=== PATIENT | female | born 1985 | race Caucasian/White ===

== ENCOUNTER 2017-07-18 14:58 | Outpatient (CLI) | payer MEDICAID ==
--- NOTE | 2017-07-18 15:37 | Non Stress Test Report ---
Non Stress Test Datetime Report Generated by CPN: 07/18/2017 15:37 DEMOGRAPHIC EGA NST: 40.3 INDICATION Indication for Study: Ordered by Provider MONITORING Monitor Explained: Monitor Explained; Test Explained; Patient Verbalized Understanding Time on Monitor: 07/18/2017 15:07 Time off Monitor: 07/18/2017 15:27 NST Duration: 20 NST INTERVENTIONS NST Interventions: None Physician Notified NST: Dr Garcia BABY A: [id number] BABY A Movement : Present Contraction Frequency : 0 FHR Baseline : 130 Accelerations : 15X15 Decelerations : None Variability : Moderate 6-25bpm NST Review: Meets Criteria for Reactive NST NST Review and Verified By : Jessica Ch RN NSLouisa Results: Reactive NST REPORT Report Trigger: Send Report
== END 2017-07-18 15:30 | disposition home or self-care (01) ==
LOC: LC 14:58
PROVIDERS: ATTEND Obstetrics & Gynecology Gynecology
PROC: 4A1HXCZ Monitoring of Products of Conception, Cardiac Rate, External Approach (ICD-10-PCS; principal; 2017-07-18)
DX: Z34.93 Encounter for supervision of normal pregnancy, unspecified, third trimester (principal)
CPT/HCPCS: 59025

== ENCOUNTER 2017-07-22 06:14 | Inpatient (IN) | payer MEDICAID ==
[2017-07-22] MEDS ORDERED: RINGERS SOLUTION,LACTATED 300 ML IV ONE (06:32)
[2017-07-22] MEDS ORDERED: OXYTOCIN/NORMAL SALINE 20 UNIT/1,000 ML RTUINJ IV PRN ×2 (06:32→21:19)
[2017-07-22] MEDS ORDERED: PENICILLIN G POTASSIUM 5,000,000 UNIT in DEXTROSE 5%-WATER 100 ML IV ONE (06:35)
[2017-07-22 06:37] LABS: APPEARANCE,URINE CLOUDY; BILIRUBIN,URINE NEGATIVE (NEGATIVE); COLOR,URINE YELLOW; GLUCOSE, URINE NEGATIVE (NEGATIVE); KETONES,URINE NEGATIVE (NEGATIVE); LEUKOCYTE ESTERASE,URINE LARGE (NEGATIVE); NITRITE,URINE NEGATIVE (NEGATIVE); PROTEIN,URINE NEGATIVE (NEGATIVE); URINE SPECIFIC GRAVITY 1.006; UROBILINOGEN,URINE NEGATIVE mg/dL (<2.0)
[2017-07-22] MEDS: RINGERS SOLUTION,LACTATED 1,000 ML IV PRN ×2 (06:54→16:53)
[2017-07-22 06:59] LABS: URINE AMPHETAMINES SCREEN NEGATIVE; URINE BARBITURATES SCREEN NEGATIVE; URINE BENZODIAZEPINES SCREEN NEGATIVE; URINE COCAINE SCREEN NEGATIVE; URINE MARIJUANA (THC) SCREEN NEGATIVE; URINE METHADONE SCREEN NEGATIVE; URINE PHENCYCLIDINE SCREEN NEGATIVE
[2017-07-22 07:01] LABS: ABSOLUTE EOSINOPHILS # (AUTO) 0.2 10^3/uL (0.0-0.6); ABSOLUTE LYMPHOCYTES (AUTO) 1.7 10^3/uL (0.5-4.7); ABSOLUTE MONOCYTES (AUTO) 0.7 10^3/uL (0.1-1.4); ABSOLUTE NEUT (AUTO) 5.3 10^3/uL (1.7-8.2); BASOPHILS % (AUTO) 0.5 % (0-2); EOSINOPHILS % (AUTO) 2.9 % (0-6); HEMATOCRIT 34.1 % (36.0-47.0); HEMOGLOBIN 11.4 g/dL (12.0-15.5); LYMPHOCYTES % (AUTO) 21.8 % (13-45); MEAN CORPUSCULAR HEMOGLOBIN 29.3 pg (27.0-33.4); MEAN CORPUSCULAR HGB CONC 33.5 g/dL (32.0-36.0); MEAN CORPUSCULAR VOLUME 87 fl (80-97); MONOCYTES % (AUTO) 8.6 % (3-13); PLATELET COUNT 224 10^3/uL (150-450); RED CELL DISTRIBUTION WIDTH 14.4 % (11.5-14.0); SEGMENTED NEUTROPHILS % (AUTO) 66.2 % (42-78); TOTAL CELLS COUNTED % (AUTO) 100 %
[2017-07-22] MEDS ORDERED: OXYTOCIN/NORMAL SALINE 20 UNIT/1,000 ML RTUINJ ONE ×2 (07:14→21:10)
[2017-07-22] MEDS ORDERED: LIDOCAINE 1% INJ-PF (10 MG/ML) 30 ML SDV ONE (07:14)
[2017-07-22] MEDS ORDERED: MISOPROSTOL 0.2 MG TABLET ONE (07:14)
--- NOTE | 2017-07-22 07:50 | Admission Physical ---
Datetime Report Generated by CPN: 07/22/2017 07:49 CURRENT ADMISSION Hx Assessment: The History has been Reviewed and is Current Chief Complaint: Scheduled Induction of Labor Indication for Induction: Maternal Diabetes Admit Impression : Term, Intrauterine ; Induction of Labor Admit Plan: Admit to Unit; Initiate Labor Protocol ALLERGIES Medication Allergies: Yes Medication Allergies: Sulfa (Sulfonamide Antibiotics)/MO/Urticaria (07/22/2017) Latex: No Latex Allergies Food Allergies: N/A Environmental Allergies: N/A OBSTETRICAL HISTORY EDC: 07/15/2017 00:00 : 1 Para: 0 Term: 0 : 0 SAB: 0 IAB: 0 Ectopic: 0 Livin Cesareans: 0 VBACs: 0 Multiple Births: 0 Gestational Diabetes: No Rh Sensitization: No Incompetent Cervix: No ANIRUDH: No Infertility: No ART Treatment: No Uterine Anomaly: No IUGR: No Hx Previous C/S: No Macrosomia: No Hx Loss/Stillborn: No PIH: No Hx : No Placenta Previa/Abruption: No Depression/PP Depression: No PTL/PROM: No Post Hemorrhage: No Current Procedures: Ultrasound; NST Obstetrical History Comments: G1- Current SEE RECORDS Alcohol: No Marijuana : No Cocaine: No Other Illicit Drugs: No Cigarettes: Former Smoker. [id number] MEDICAL HISTORY Diabetes: No Blood Transfusion: No Pulmonary Disease (Asthma, TB): No Breast Disease: No Hypertension: No Renewals Specialist Surgery: No Heart Disease: No Hosp/Surgery: No Autoimmune Disorder: No Anesthetic Complications: No Kidney Disease: No Abnormal Pap Smear: No Neuro/Epilepsy: No Psychiatric Disorders: Yes Other Medical Diseases: No Hepatitis/Liver Disease: No Significant Family History: No Varicosities/Phlebitis: No Trauma/Violence : No Thyroid Dysfunction: No Medical History Comments: Depression, social anxiety INFECTIOUS HISTORY Gonorrhea: No Genital Herpes: No Chlamydia: No Tuberculosis: No Syphilis: No Hepatitis: No HIV/AIDS Exposure: No Rash or Viral Illness: No HPV: No PHYSICAL EXAM General: Normal HEENT: Normal Neurologic: Normal Thyroid: Normal Heart: Normal Lungs: Normal Breast: Normal Back: Normal Abdomen: Normal Genitourinary Exam: Normal Extremities: Normal DTRs: Normal Pelvic Type: Adequate Vital Signs: Reviewed; Within Normal Limits VAGINAL EXAM Dilatation: 2 Effacement: 50 Station: -3 MEMBRANES Membranes: Intact FETUS A EGA: 41.0 Monitoring: External US FHR- Baseline: 140 Variability: Moderate 6-25bpm Accelerations: 15X15 Decelerations: None FHR Category: Category I Presentation: Vertex PLANS FOR LABOR AND DELIVERY Labor and Delivery: None Pain Management: Epidural Feeding Preference: Breast Benefit of Breast Feed Discussed: Yes Circumcision: Yes INFORMED CONSENT Informed Consent Obtained: Vaginal Delivery; Section Delivery; Induction of Labor; Vacuum/Forceps Assist; Risks, Benefits and Alternatives Discussed Signature: with User ID: [email or web address]
--- NOTE | 2017-07-22 09:44 | L&D Progress Notes ---
PROGRESS NOTES Datetime Report Generated by CPN: 07/22/2017 09:43 PROGRESS NOTE Impression Other: IUP @ 41w-IOL Impression Other: IUP @ 41w-IOL Procedures: Artificial ROM; Sterile Vag Exam Procedures: Artificial ROM; Sterile Vag Exam Plan: Continue Present Management; Induction Plan: Continue Present Management Informed Consent Obtained: Vaginal Delivery; Induction of Labor; Risks, Benefits and Alternatives Discussed Informed Consent Obtained: Vaginal Delivery; Induction of Labor; Risks, Benefits and Alternatives Discussed Informed Consent Obtained: Vaginal Delivery; Section Delivery; Induction of Labor; Vacuum/Forceps Assist; Risks, Benefits and Alternatives Discussed Vital Signs : Reviewed; Within Normal Limits Vital Signs : Reviewed; Within Normal Limits Comment: S: reports increased pain with contractions,desires epidural for pain control at some point O: VSS, cervix as stated, pit @ 18mu/min A: IUP @ 41w- IOL-stable AROM-clear fluid P: continue IOL with pitocin, reassess as clinically indicated or with epidural placement. Pt. and asked questions and verbalized understanding. VAGINAL EXAM Dilatation: 4 Dilatation: 4 Dilatation: 2 Effacement: 70 Effacement: 70 Effacement: 50 Station: -2 Station: -2 Station: -3 Contractions: 1.5-2.5 MEMBRANES Membranes: Ruptured Membranes: Intact Amniotic Fluid Color: Clear FETUS A FHR - Baseline: 140 Monitoring: External US Variability: Moderate 6-25bpm Accelerations: 15X15 : 41.0 Presentation: Vertex SIGNATURE SIGNATURE: [id number];[id number];13,[id number] SIGNATURE: [id number];[id number] SIGNATURE: [id number] Assignment: Mayi Zaidi MD Signature: with User ID: [email or web address] : with User ID: [email or web address]
[2017-07-22] MEDS ORDERED: PENICILLIN G POTASSIUM 2,500,000 UNIT in DEXTROSE 5%-WATER 50 ML IV SCH (10:35)
[2017-07-22] MEDS ORDERED: BUPIVACAINE HCL 0.25 % INJ/PF (2.5 MG/1 ML) 30 ML VIAL ONE (11:18)
[2017-07-22] MEDS ORDERED: FENTANYL/BUPIVACAINE/NS/PF 200 MCG/100 ML RTUINJ EPI ONE (11:18)
[2017-07-22] MEDS ORDERED: EPHEDRINE SULFATE INJ 50 MG/1 ML AMPULE ONE (11:18)
[2017-07-22] MEDS ORDERED: PENICILLIN G-K 5 MILLION UNIT VIAL ONE (12:58)
--- NOTE | 2017-07-22 15:52 | L&D Progress Notes ---
PROGRESS NOTES Datetime Report Generated by CPN: 07/22/2017 15:52 PROGRESS NOTE Impression: Normal Progression of Labor Plan: Continue Present Management Informed Consent Obtained: Induction of Labor; Risks, Benefits and Alternatives Discussed Vital Signs : Reviewed; Within Normal Limits Comment: S: reports complete relief of pain with epidural,no concerns at this time O: VSS, cervix as stated, head slightly asynclitic, pit @ 16mu/min, tracing as stated A: IUP @ 41w IOL-progressing, IUPC _ FSE inserted without difficulty. P: stop pitocin for 30min due to late decels and multiple doses of ephedrine after epidural placement. Will re-start and reassess as clinically indicated or earlier prn. VAGINAL EXAM Dilatation: 6 Effacement: 70 Station: -1 Contractions: irregular FETUS A FHR - Baseline: 135 Monitoring: External US Variability: Moderate 6-25bpm Decelerations: Late FETUS C SIGNATURE: [id number];[id number];10,[id number] Assignment: Mayi Zaidi MD Signature: with User ID: [email or web address] : with User ID: [email or web address]
[2017-07-22] MEDS ORDERED: ONDANSETRON 4 MG TAB.RAPDIS ONE (19:00)
[2017-07-22] MEDS ORDERED: ONDANSETRON 4 MG TAB.RAPDIS PO ONE (19:05)
[2017-07-22] MEDS ORDERED: OXYTOCIN 10 UNIT/ML VIAL ONE (21:10)
[2017-07-22] MEDS ORDERED: DIPH/PERTUSS(ACELL)/TETANUS VAC/PF 0.5 ML SYR (>=10YO) IM PRN (21:19)
[2017-07-22] MEDS ORDERED: BENZOCAINE/MENTHOL AEROSOL SPRAY 56 ML TOP PRN (21:19)
[2017-07-22] MEDS ORDERED: DIPHENHYDRAMINE HCL 25 MG CAPSULE PO PRN (21:19)
[2017-07-22] MEDS ORDERED: GLYCERIN/WITCH HAZEL LEAF 1 EACH MED..PAD TP PRN (21:19)
[2017-07-22] MEDS ORDERED: MAGNESIUM HYDROXIDE SUSP 30 ML UDCUP PO PRN (21:19)
[2017-07-22] MEDS ORDERED: PROMETHAZINE HCL INJ 25 MG/1 ML VIAL IV PRN (21:19)
[2017-07-22] MEDS ORDERED: ZOLPIDEM TARTRATE 5 MG TABLET PO PRN (21:19)
[2017-07-22] MEDS ORDERED: PROMETHAZINE HCL 25 MG SUPP.RECT PR PRN (21:19)
[2017-07-22] MEDS ORDERED: ACETAMINOPHEN WITH CODEINE #3 TABLET PO PRN ×2 (21:19)
[2017-07-22] MEDS ORDERED: ACETAMINOPHEN 650 MG SUPP.RECT PR PRN (21:19)
[2017-07-22] MEDS ORDERED: MEASLES,MUMPS&RUBELLA VACC/PF 0.5 ML VIAL SUBCUT PRN (21:19)
[2017-07-22] MEDS ORDERED: PROMETHAZINE HCL 25 MG TABLET PO PRN (21:19)
[2017-07-22] MEDS ORDERED: NA PHOS,M-B/NA PHOS,DI-BA (ADULT) 133 ML ENEMA PR PRN (21:19)
[2017-07-22] MEDS ORDERED: DIBUCAINE 1% OINTMENT 28 GM TP PRN (21:19)
[2017-07-22] MEDS ORDERED: PSEUDOEPHEDRINE HCL 30 MG TABLET PO PRN (21:19)
--- NOTE | 2017-07-22 22:58 | Delivery Summary ---
Del Sum A-C Datetime Report Generated by CPN: 07/22/2017 22:57 DELIVERY PERSONNEL DELIVERY PERSONNEL: [id number] Delivery Doctor:: Mayi Zaidi MD Labor and Delivery Nurse:: Jennifer Levine RNrn informatics Nurse:: Rena Martínez RN Nursery Nurse:: Patricia Verdugo RN Nursery Nurse:: NATE Caseub Tech/COTTON STRIPPER: Farideh Guzman, ST MATERNAL INFORMATION Delivery Anesthesia: Epidural Medications After Delivery: Pitocin Bolus-Please Comment; Pitocin Drip 20 Units/1000ml NSS Estimated Blood Loss (ml): 150 Maternal Complications: None LABOR SUMMARY EDC: 07/15/2017 00:00 No. Babies in Womb: 1 Attempted: No Labor Anesthesia: Epidural LABOR INFORMATION Reason for Induction: Post Dates Onset of Labor: 07/22/2017 09:30 Complete Dilatation: 07/22/2017 20:37 Oxytocin: Induction Group B Beta Strep: Positive Antibiotics # of Doses: 3 Antibiotics Time of Last Dose: 171 Name of Antibiotic Given: PENICILLIN G Steroids Given: None Reason Steroids Not Administered: Not Applicable MEMBRANES Membranes Rupture Method: Artificial Rupture of Membranes: 07/22/2017 09:30 Length of Rupture (hr): 11.55 Amniotic Fluid Color: Clear Amniotic Fluid Amount: Small Amniotic Fluid Odor: None STAGES OF LABOR Stage 1 hr: 11 Stage 1 min: 7 Stage 2 hr: 0 Stage 2 min: 26 Stage 3 hr: 0 Stage 3 min: 5 Total Time in Labor hr: 11 Total Time in Labor min: 38 VAGINAL DELIVERY Episiotomy: None Laceration #1: Perineal Laceration Extension #1: First Degree Laceration Repair: Yes Laceration Repair Note: 2-0 chromic repair in normal fashion. Sponge Count Correct: N/A Sharps Count Correct: N/A CSECTION DELIVERY Primary Indication: N/A Secondary Indication: N/A CSection Incidence: N/A Labor: N/A Elective: N/A CSection Incision: N/A BABY A INFORMATION Delivery Date/Time: 07/22/2017 21:03 Method of Delivery: Vaginal Born in Route : No : N/A Forceps: N/A Vacuum Extraction: N/A Shoulder Dystocia : No PRESENTATION/POSITION BABY A Presentation: Cephalic Cephalic Presentation: Vertex Vertex Position: Left Occipital Anterior Breech Presentation: N/A PLACENTA INFORMATION BABY A Placenta Delivery Time : 07/22/2017 21:08 Placenta Method of Delivery: Spontaneous Placenta Status: Delivered SCORES BABY A Heart Rate 1 min: >100 bpm Resp Effort 1 min: Good Cry Reflex Irritability 1 min: Cough or Sneeze or Pulls Away Muscle Tone 1 min: Active Motion Color 1 min: Blue/Pale SCORE 1 MIN: 8 Heart Rate 5 min: >100 bpm Resp Effort 5 min: Good Cry Reflex Irritability 5 min: Cough or Sneeze or Pulls Away Muscle Tone 5 min: Active Motion Color 5 min: Body [place], Extremities Blue SCORE 5 MIN: 9 INFANT INFORMATION BABY A Gestational Age at Delivery: 41.0 Gestational Status: Late Term- 41- 41.6 Weeks Outcome : Liveborn Infant Condition : Stable Sex: Male IDENTIFICATION BABY A Infant Verification Date/Time: 07/22/2017 21:21 ID Band Number: [id number] Mother's Name Verified: Yes Infant RN Verifying Infant: K Mauricio RN Additional Verifying Personnel: D Albert US WEIGHT/LENGTH BABY A Infant Birthweight (gm): 4110 Infant Weight (lb): 9 Infant Weight (oz): 1 Infant Length (in): 20.50 Length (cm): 52.07 CORD INFORMATION BABY A No. Cord Vessels: 3 Nuchal Cord : Around Neck x1, Loose Nuchal Cord- Other: L compound hand Cord Blood Taken: Yes-For Storage (Mom's Blood type +) Suction: Mouth ASSESSMENT BABY A Complications: Multiple Variable Decels Physical Findings at Delivery: Molding of the Head Respirations: Appears Normal Skin to Skin: Yes Superintendent Overhead Distribution/ALS Called : No Care By: Jostin Guerrero RN, RN Transferred To: Remains with Mother BABY B INFORMATION : N/A SIGNATURES Signature: with User ID: [email or web address]
--- NOTE | 2017-07-22 23:02 | Warning Signs in Babies ---
VOD Warning Signs Datetime Report Generated by [facility]: 07/22/2017 23:01 VOD#608 -Warning Signs in Babies: Viewed with Parent(s)/Family (07/18/2017 15:17:Jennifer eLvine RN)
[2017-07-23] MEDS: IBUPROFEN 800 MG TABLET PO SCH ×4 (00:32→21:51)
[2017-07-23] MEDS: FAMOTIDINE 20 MG TABLET PO SCH ×3 (00:32→21:51)
[2017-07-23 07:41] LABS: HEMATOCRIT 31.2 % (36.0-47.0); HEMOGLOBIN 10.4 g/dL (12.0-15.5); MEAN CORPUSCULAR HEMOGLOBIN 28.9 pg (27.0-33.4); MEAN CORPUSCULAR HGB CONC 33.2 g/dL (32.0-36.0); MEAN CORPUSCULAR VOLUME 87 fl (80-97); PLATELET COUNT 192 10^3/uL (150-450); RED BLOOD COUNT 3.58 10^6/uL (3.72-5.28); RED CELL DISTRIBUTION WIDTH 15.1 % (11.5-14.0)
[2017-07-23 07:45] LABS: WHITE BLOOD COUNT 17.3 10^3/uL (4.0-10.5)
[2017-07-23] MEDS: SENNOSIDES/DOCUSATE 8.6-50 MG 1 EACH TABLET PO SCH (09:50)
[2017-07-23] MEDS: FERROUS SULFATE 325 MG TABLET PO SCH ×2 (09:50→17:10)
[2017-07-23] MEDS: PRENATAL VITAMIN W DHA CAPSULE PO SCH (09:52)
[2017-07-23] MEDS ORDERED: (PENDING PHARMACY ID) (Prenatal Vit/Iron Fum/Folic Ac [Prenatal Tablet] 1 EACH) PO SCH (10:00)
[2017-07-23] MEDS ORDERED: (PENDING PHARMACY ID) (Ranitidine Hcl [Zantac 150 Mg Tablet] 150 MG) PO SCH (10:00)
--- NOTE | 2017-07-23 11:02 | PDOC PROGRESS REPORT ---
Subjective-OB Progress Note for:: 07/23/17 Subjective: pt sleeping offers no complaints ff@u-2 mild lochia without complaints anticipate d/c in AM Physical Exam (OB) Vital Signs: Temp Pulse Resp BP Pulse Ox 98.2 F 76 16 114/76 99 07/23/17 08:25 07/23/17 08:25 07/23/17 08:25 07/23/17 08:25 07/23/17 08:25 Intake & Output 07/22/17 07/23/17 07/24/17 06:59 06:59 06:59 Weight 105.8 kg - PIH/Pre-Eclampsia Clonus: Negative Headache: Absent Epigastric Pain: No Visual Changes: No - Lochia Lochia Amount: Moderate 25-50 ml Lochia Color: Rubra/Red - Abdomen Description: Soft, Round Fundal Description: Firm, Non-Midline Fundal Height: u/u - u/2 Objective-Diagnostic Laboratory: 07/23/17 07:07 07/23/17 07:07 WBC 17.3 H D RBC 3.58 L Hgb 10.4 L Hct 31.2 L MCV 87 MCH 28.9 MCHC 33.2 RDW 15.1 H Plt Count 192
[2017-07-23] MEDS: DOCUSATE SODIUM 100 MG CAPSULE PO SCH (17:10)
[2017-07-24] MEDS: IBUPROFEN 800 MG TABLET PO SCH ×2 (05:33→14:04)
[2017-07-24 08:10] VITALS: BP 111/65
--- NOTE | 2017-07-24 09:51 | PDOC PROGRESS REPORT ---
Subjective-OB Progress Note for:: 07/24/17 Subjective: Ready to go home. Physical Exam (OB) Vital Signs: Temp Pulse Resp BP Pulse Ox 98.1 F 62 15 111/65 99 07/24/17 08:18 07/24/17 08:18 07/24/17 08:18 07/24/17 08:18 07/24/17 08:18 Intake & Output 07/23/17 07/24/17 07/25/17 06:59 06:59 06:59 Weight 105.8 kg - PIH/Pre-Eclampsia Clonus: Negative Headache: Absent Epigastric Pain: No Visual Changes: No - Lochia Lochia Amount: Small 10-25 ml Lochia Color: Rubra/Red - Abdomen Description: Soft, Round Hernia Present: No Bowel Sounds: Normoactive Flatus Presence: Present Stool: No Fundal Description: Firm, Midline Fundal Height: u/u - u/2 Objective-Diagnostic Laboratory: 07/23/17 07:07
[2017-07-24] MEDS: PRENATAL VITAMIN W DHA CAPSULE PO SCH (09:54)
[2017-07-24] MEDS: FERROUS SULFATE 325 MG TABLET PO SCH (09:54)
[2017-07-24] MEDS: FAMOTIDINE 20 MG TABLET PO SCH (09:55)
[2017-07-24] MEDS: SENNOSIDES/DOCUSATE 8.6-50 MG 1 EACH TABLET PO SCH (09:55)
[2017-07-24] MEDS: DOCUSATE SODIUM 100 MG CAPSULE PO SCH (09:56)
--- NOTE | 2017-07-24 10:04 | PDOC DISCHARGE SUMMARY ---
Final Diagnosis Discharge Date: 07/24/17 - Final Diagnosis (1) Delivery normal Is this a current diagnosis for this admission?: Yes (2) Depression Is this a current diagnosis for this admission?: Yes (3) Excessive weight gain in Is this a current diagnosis for this admission?: Yes (4) Positive GBS test Is this a current diagnosis for this admission?: Yes (5) Is this a current diagnosis for this admission?: Yes Discharge Data - Discharge Medication Prescriptions: Docusate Sodium [Colace 100 mg Capsule] 100 mg PO BID #30 capsule Ferrous Sulfate [Feosol 325 mg Tablet] 325 mg PO BID #60 tablet Home Medications: Vit/Iron Fum/Folic AC [ Tablet] 1 each PO DAILY 07/18/17 Docusate Sodium [Colace 100 mg Capsule] 100 mg PO BID #30 capsule 07/24/17 Ferrous Sulfate [Feosol 325 mg Tablet] 325 mg PO BID #60 tablet 07/24/17 Gestational Age: 41 wks Reason(s) for Admission: Induction of Labor, Gestional Diabetes Procedures: NST, Ultrasound Intrapartum Procedure(s): Spontaneous Vaginal Delivery Complication(s): Laceration-Perineal Laceration-Degree: 1st - Monitor Data Baby 1 Male at 1 minute: 8 at 5 minutes: 9 Weight: 4.111 kg - Diagnosis Test Laboratory: Temp Pulse Resp BP Pulse Ox 98.1 F 62 15 111/65 99 07/24/17 08:18 07/24/17 08:18 07/24/17 08:18 07/24/17 08:18 07/24/17 08:18 07/22/17 07/22/17 07/23/17 06:21 06:36 07:07 RBC 3.90 3.58 L Hgb 11.4 L 10.4 L Hct 34.1 L 31.2 L Urine Opiates Screen NEGATIVE - Discharge information/Instructions Discharge Activity: Activity As Tolerated, Balance Activity w/Rest, Pelvic Rest , Slowly Increase Activity, No tub bath Discharge Diet: Regular Disposition: HOME, SELF-CARE Follow up with: [facility] in: 4, Weeks
[2017-07-24 11:38] LABS: HEMATOCRIT 32.5 % (36.0-47.0); HEMOGLOBIN 10.6 g/dL (12.0-15.5); MEAN CORPUSCULAR HEMOGLOBIN 28.8 pg (27.0-33.4); MEAN CORPUSCULAR HGB CONC 32.6 g/dL (32.0-36.0); MEAN CORPUSCULAR VOLUME 89 fl (80-97); PLATELET COUNT 231 10^3/uL (150-450); RED BLOOD COUNT 3.67 10^6/uL (3.72-5.28); WHITE BLOOD COUNT 11.3 10^3/uL (4.0-10.5)
== END 2017-07-24 14:29 | disposition home or self-care (01) | DRG 775 ==
LOC: LR 06:14 → 2S 23:13
PROVIDERS: ADMIT Obstetrics & Gynecology; ATTEND Obstetrics & Gynecology
PROC: 10E0XZZ Delivery of Products of Conception, External Approach (ICD-10-PCS; principal; 2017-07-22)
PROC: 0HQ9XZZ Repair Perineum Skin, External Approach (ICD-10-PCS; 2017-07-22)
PROC: 4A1HXCZ Monitoring of Products of Conception, Cardiac Rate, External Approach (ICD-10-PCS; 2017-07-22)
DX: O48.0 Post-term pregnancy (principal); O24.429 Gestational diabetes mellitus in childbirth, unspecified control; O70.0 First degree perineal laceration during delivery; O99.824 Streptococcus B carrier state complicating childbirth; O99.344 Other mental disorders complicating childbirth; O69.81X0 Labor and delivery complicated by cord around neck, without compression, not applicable or unspecified; O76 Abnormality in fetal heart rate and rhythm complicating labor and delivery; F32.9 Major depressive disorder, single episode, unspecified; O26.03 Excessive weight gain in pregnancy, third trimester; Z3A.41 41 weeks gestation of pregnancy; Z88.2 Allergy status to sulfonamides; Z37.0 Single live birth
CPT/HCPCS: 36415; 80307; 81005; 85025; 85027; 86592; 86850; 86900; 86901; J2540; J2590; J3490; S0119

== ENCOUNTER 2019-03-03 18:03 | Emergency (ER) | payer BC, MEDICAID ==
--- NOTE | 2019-03-03 18:24 | ER Document Report ---
ED Medical Screen (RME) - General Chief Complaint: Numbness Stated Complaint: NUMBNESS IN LEG Time Seen by Provider: 03/03/19 18:21 Primary Care Provider: ULISES MANN CNM [Primary Care Provider] - Follow up as needed Mode of Arrival: Ambulatory Information source: Patient Notes: 33-year-old female approximately 20 weeks presents to the emergency department with right leg pain. Reports her provider did schedule her Doppler next week but the pain is increasing. Denies recent trip. Denies history of DVTs. Reports her knee is swelling. I have greeted and performed a rapid initial assessment of this patient. A comprehensive ED assessment and evaluation of the patient, analysis of test results and completion of the medical decision making process will be conducted by additional ED providers. Dictation of this chart was performed using voice recognition software; therefore, there may be some unintended grammatical errors. TRAVEL OUTSIDE OF THE [place] IN LAST 30 DAYS: No - Related Data Allergies/Adverse Reactions: Sulfa (Sulfonamide Antibiotics) Allergy (Intermediate, Verified 07/22/17 07:03) Urticaria Past Medical History - Past Medical History Cardiac Medical History: Denies: Hx Hypertension, Hx Pulmonary Embolism, Hx Heart Murmur Pulmonary Medical History: Denies: Hx Asthma, Hx Sleep Apnea, Hx Tuberculosis Neurological Medical History: Denies: Hx Cerebrovascular Accident, Hx Seizures Endocrine Medical History: Denies: Hx Hyperthyroidism, Hx Hypothyroidism Renal/ Medical History: Denies: Hx Kidney Stones, Hx Ovarian Cysts, Hx Pelvic Inflammatory Disease Malignancy Medical History: Denies: Hx Breast Cancer, Hx Cervical Cancer, Hx Ovarian Cancer GI Medical History: Denies: Hx Gastroesophageal Reflux Disease, Hx Hiatal Hernia, Hx Ulcer Musculoskeltal Medical History: Denies Hx Fibromyalgia Psychiatric Medical History: Reports: Hx Depression Denies: Hx Bipolar Disorder, Hx Post Traumatic Stress Disorder, Hx Schizophrenia Traumatic Medical History: Denies: Hx Fractures Infectious Medical History: Denies: Hx HIV Physical Exam - Vital signs Vitals: Temp Pulse Resp BP Pulse Ox 98.0 F 79 20 116/69 100 03/03/19 18:11 03/03/19 18:11 03/03/19 18:11 03/03/19 18:11 03/03/19 18:11 Course - Vital Signs Vital signs: Temp Pulse Resp BP Pulse Ox 98.0 F 79 20 116/69 100 03/03/19 18:11 03/03/19 18:11 03/03/19 18:11 03/03/19 18:11 03/03/19 18:11 Doctor's Discharge - Discharge Referrals: ULISES MANN CNM [Primary Care Provider] - Follow up as needed
--- NOTE | 2019-03-03 20:13 | ER Document Report ---
ED General - General Chief Complaint: Leg Pain Stated Complaint: NUMBNESS IN LEG Time Seen by Provider: 03/03/19 18:21 Primary Care Provider: ULISES MANN CNM [ALLIED HEALTH PROFESSIONAL] - Follow up as needed Mode of Arrival: Ambulatory TRAVEL OUTSIDE OF THE [place] IN LAST 30 DAYS: No - HPI Notes: Patient is a 33-year-old female who is proximate 28 weeks who presents complaining of right low back pain that radiates down into her right medial leg down into her foot for the past 3 days. Patient states that movement does make her pain worse. Patient states that she does have some varicose veins and her family doctor wanted an ultrasound performed to make sure there is no blood clot. She otherwise has no other concerns or complaints. She is able to eat and drink without difficulty. She is urinating normally and having normal bowel movements. No vaginal discharge, odor, or bleeding. No history of spinal abscess, diabetes, IV drug abuse. Denies any headache, fever, neck pain, URI, sore throat, chest pain, palpitations, syncope, cough, shortness of breath, wheeze, dyspnea, abdominal pain, nausea/vomiting/diarrhea, urinary retention, dysuria, hematuria, loss of control of bowel or bladder, numbness/tingling, saddle anesthesia, muscle paralysis/weakness, or rash. - Related Data Allergies/Adverse Reactions: Sulfa (Sulfonamide Antibiotics) Allergy (Intermediate, Verified 07/22/17 07:03) Urticaria Home Medications: tylenol. vitamin Past Medical History - General Information source: Patient - Social History Smoking Status: Never Smoker Chew tobacco use (# tins/day): No Frequency of alcohol use: None Drug Abuse: None Family History: Reviewed & Not Pertinent Patient has suicidal ideation: No Patient has homicidal ideation: No - Past Medical History Cardiac Medical History: Denies: Hx Hypertension, Hx Pulmonary Embolism, Hx Heart Murmur Pulmonary Medical History: Denies: Hx Asthma, Hx Sleep Apnea, Hx Tuberculosis Neurological Medical History: Denies: Hx Cerebrovascular Accident, Hx Seizures Endocrine Medical History: Denies: Hx Hyperthyroidism, Hx Hypothyroidism Renal/ Medical History: Denies: Hx Kidney Stones, Hx Ovarian Cysts, Hx Pelvic Inflammatory Disease Malignancy Medical History: Denies: Hx Breast Cancer, Hx Cervical Cancer, Hx Ovarian Cancer GI Medical History: Denies: Hx Gastroesophageal Reflux Disease, Hx Hiatal Hernia, Hx Ulcer Musculoskeletal Medical History: Denies Hx Fibromyalgia Psychiatric Medical History: Reports: Hx Depression Denies: Hx Bipolar Disorder, Hx Post Traumatic Stress Disorder, Hx Schizophrenia Traumatic Medical History: Denies: Hx Fractures Infectious Medical History: Denies: Hx HIV Review of Systems - Review of Systems -: Yes All other systems reviewed and negative Physical Exam - Vital signs Vitals: Temp Pulse Resp BP Pulse Ox 98.0 F 79 20 116/69 100 03/03/19 18:11 03/03/19 18:11 03/03/19 18:11 03/03/19 18:11 03/03/19 18:11 - Notes Notes: PHYSICAL EXAMINATION: GENERAL: Well-appearing, well-nourished and in no acute distress. LUNGS: Breath sounds clear to auscultation bilaterally and equal. No wheezes rales or rhonchi. HEART: Regular rate and rhythm without murmurs, rubs, gallops. ABDOMEN: Soft, nontender, nondistended abdomen. No guarding, no rebound. Normal bowel sounds present. No CVA tenderness bilaterally. Musculoskeletal: LE's b/l: FROM to passive/active. Strength 5+/5. No deficits noted. No bony tenderness of extremities. Back: FROM to passive/active. Strength 5+/5. No vertebral point tenderness, stepoffs, or deformities. No other bony tenderness, erythema, swelling, or ecchymosis. SLR negative b/l. + mild tenderness to the Rt L-paraspinal mm. Mild spasming. + mild rt SI jt tenderness. No foot drop Extremities: No cyanosis, clubbing, or edema b/l. Peripheral pulses 2+. Capillary refill less than 2 seconds. No calf tenderness or LE asymmetry. NEUROLOGICAL: Normal speech, normal gait. Normal sensory, motor exams. Reflexes 2+ b/l. PSYCH: Normal mood, normal affect. SKIN: Warm, Dry, normal turgor, no rashes or lesions noted. Course - Re-evaluation Re-evalutation: 03/03/19 21:33 Patient is an afebrile, well-hydrated, 33-year-old female who presents to the ED with Rt low back pain with probable radiculitis RLE. Vitals are acceptable. PE is otherwise unremarkable for any focal neurological deficits. Pt given tylenol. She has no significant tachycardia, tachypnea, or hypoxia. She is nontoxic-appearing and is tolerating p.o. without difficulties. There are no signs of infection. No other red flag symptoms noted. Doppler negative for DVT. No other labs or imaging warranted at this time based on H&P. Low suspicion for any meningitis, fracture, expanding/ruptured AAA, cauda equina syndrome, epidural mass lesion/abscess, herniated disc causing severe spinal stenosis, or other systemic infection at this time. Patient is aware that this condition can change from initial presentation and that she needs monitor symptoms closely for any acute changes. Conservative measures otherwise for symp toms. Recheck with your PCM in 3-5 days. Consider consult with orthopedic/physical therapy. Return to the ED with any worsening/concerning symptoms otherwise as reviewed discharge. Patient is in agreement. - Vital Signs Vital signs: Temp Pulse Resp BP Pulse Ox 98.0 F 79 20 116/69 100 03/03/19 18:11 03/03/19 18:11 03/03/19 18:11 03/03/19 18:11 03/03/19 18:11 Discharge - Discharge Clinical Impression: Right leg pain Right low back pain Qualifiers: Chronicity: acute Sciatica presence: with sciatica Sciatica laterality: sciatica of right side Qualified Code(s): M54.41 - Lumbago with sciatica, right side Condition: Stable Disposition: HOME, SELF-CARE Additional Instructions: Rest, Ice Tylenol as needed Light stretches daily Strength exercises as able Moist heat and massage may help F/u with your PCP in 3-5 days for a recheck Consider consult(s) with Orthopedics/physical therapy for ongoing/worsening symptoms Return to the ED with any worsening symptoms and/or development of fever, headache, chest pain, palpitations, syncope, shortness of breath, trouble breathing, abdominal pain, n/v/d, blood in stool/urine, loss of control of bowel/bladder, urinary retention, muscle weakness/paralysis, saddle anesthesia, numbness/tingling, or other worsening symptoms that are concerning to you. Referrals: ULISES MANN, CNM [ALLIED HEALTH PROFESSIONAL] - Follow up as needed MARTY IGNACIO JR, DO [ACTIVE PROVISIONAL STAFF] - Follow up as needed
[2019-03-03] MEDS ORDERED: ACETAMINOPHEN 325 MG TABLET PO ONE (20:21)
--- NOTE | 2019-03-03 21:21 | RADIOLOGY REPORT (SQ) ---
EXAM DESCRIPTION: US EXTREMITY VEINS UNILATERAL COMPLETED DATE/TME: 03/03/2019 18:23 CLINICAL HISTORY: 33 years, Female, right leg pain COMPARISON: None. EXAM DESCRIPTION: CLINICAL HISTORY: 33 years Female right leg pain COMPARISON: None. TECHNIQUE: Duplex and color Doppler imaging performed to evaluate the extremity deep venous structures. Compression imaging and augmentation imaging performed. FINDINGS: Increased echogenicity of blood within the common femoral vein suggests hemoconcentration / sluggish flow; clinical correlation will be helpful. No thrombus is identified in the deep venous structures imaged. There is normal flow, compressibility, and augmentation throughout. IMPRESSION: No DVT is identified.
[2019-03-03 21:47] VITALS: BP 104/63
== END 2019-03-03 21:48 | disposition home or self-care (01) ==
LOC: ER 18:03
DX: O26.893 Other specified pregnancy related conditions, third trimester (principal); M54.41 Lumbago with sciatica, right side; R20.0 Anesthesia of skin; M79.604 Pain in right leg; Z3A.28 28 weeks gestation of pregnancy
CPT/HCPCS: 93971

== ENCOUNTER → 2019-03-10 | Outpatient (CLI) | payer BC, MEDICAID ==
--- NOTE | 2019-03-10 12:20 | RADIOLOGY REPORT (SQ) ---
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 TECHNIQUE: Dynamic and static monahan scale and color images acquired of both lower extremity venous sy stems. Selected spectral images acquired with additional compression and augmentation maneuvers. Imag es stored on PACS. LIMITATIONS: None. FINDINGS: RIGHT LEG COMMON FEMORAL AND FEMORAL: Normal phasicity, compression and augmentation. No visualized echogenic m aterial on monahan scale. No defects on color images. POPLITEAL: Normal compression and augmentation. No visualized echogenic material on monahan scale. No de fects on color images. CALF VESSELS: Normal compression and augmentation. No visualized echogenic material on monahan scale. No defects on color image. GSV AND SSV: Normal compression. No visualized echogenic material on monahan scale. No defects on color images. ANY DEEP VENOUS INSUFFICIENCY: No reflux on Valsalva. ANY EVIDENCE OF POPLITEAL CYST: No. OTHER: No other significant finding. LEFT LEG COMMON FEMORAL AND FEMORAL: Normal phasicity, compression and augmentation. No visualized echogenic m aterial on monahan scale. No defects on color images. POPLITEAL: Normal compression and augmentation. No visualized echogenic material on monahan scale. No de fects on color images. CALF VESSELS: Normal compression and augmentation. No visualized echogenic material on monahan scale. No defects on color images. GSV AND SSV: Normal compression. No visualized echogenic material on monahan scale. No defects on color images. ANY DEEP VENOUS INSUFFICIENCY: No reflux on Valsalva. ANY EVIDENCE POPLITEAL CYST: No. OTHER: No other significant finding. IMPRESSION: NO EVIDENCE DVT OR SVT IN EITHER LEG. TECHNICAL DOCUMENTATION: JOB ID: [id number] [employer]- All Rights Reserved Reading location - IP/workstation name: [facility]
== END ==
LOC: SP 07:09
PROVIDERS: ATTEND Obstetrics & Gynecology
DX: I83.813 Varicose veins of bilateral lower extremities with pain (principal)
CPT/HCPCS: 93970

== ENCOUNTER 2019-05-19 23:52 | Inpatient (IN) | payer BC, MEDICAID ==
[2019-05-20 00:28] LABS: APPEARANCE,URINE CLEAR; BILIRUBIN,URINE NEGATIVE (NEGATIVE); COLOR,URINE STRAW; GLUCOSE, URINE NEGATIVE (NEGATIVE); KETONES,URINE NEGATIVE (NEGATIVE); LEUKOCYTE ESTERASE,URINE NEGATIVE (NEGATIVE); NITRITE,URINE NEGATIVE (NEGATIVE); PROTEIN,URINE NEGATIVE (NEGATIVE); URINE SPECIFIC GRAVITY 1.006; UROBILINOGEN,URINE NEGATIVE mg/dL (<2.0)
[2019-05-20] MEDS ORDERED: OXYTOCIN/NORMAL SALINE 20 UNIT/1,000 ML RTUINJ IV PRN ×2 (00:35→12:07)
[2019-05-20 00:44] LABS: URINE AMPHETAMINES SCREEN NEGATIVE; URINE BARBITURATES SCREEN NEGATIVE; URINE BENZODIAZEPINES SCREEN NEGATIVE; URINE COCAINE SCREEN NEGATIVE; URINE MARIJUANA (THC) SCREEN NEGATIVE; URINE METHADONE SCREEN NEGATIVE; URINE PHENCYCLIDINE SCREEN NEGATIVE
[2019-05-20] MEDS: RINGERS SOLUTION,LACTATED 1,000 ML IV PRN ×2 (00:45→09:52)
[2019-05-20] MEDS ORDERED: MISOPROSTOL 0.2 MG TABLET ONE (00:46)
[2019-05-20] MEDS ORDERED: OXYTOCIN 10 UNIT/ML VIAL ONE (00:46)
[2019-05-20] MEDS ORDERED: LIDOCAINE 1% INJ-PF (10 MG/ML) 30 ML SDV ONE (00:47)
[2019-05-20] MEDS ORDERED: OXYTOCIN/NORMAL SALINE 20 UNIT/1,000 ML RTUINJ ONE (00:47)
[2019-05-20] MEDS ORDERED: PENICILLIN G-K 5 MILLION UNIT VIAL ONE ×3 (00:51→09:46)
[2019-05-20 01:04] LABS: ABSOLUTE EOSINOPHILS # (AUTO) 0.2 10^3/uL (0.0-0.6); ABSOLUTE LYMPHOCYTES (AUTO) 1.4 10^3/uL (0.5-4.7); ABSOLUTE MONOCYTES (AUTO) 0.9 10^3/uL (0.1-1.4); ABSOLUTE NEUT (AUTO) 6.2 10^3/uL (1.7-8.2); BASOPHILS % (AUTO) 0.3 % (0-2); EOSINOPHILS % (AUTO) 2.7 % (0-6); HEMATOCRIT 31.7 % (36.0-47.0); HEMOGLOBIN 10.5 g/dL (12.0-15.5); LYMPHOCYTES % (AUTO) 15.7 % (13-45); MEAN CORPUSCULAR HGB CONC 33.1 g/dL (32.0-36.0); MEAN CORPUSCULAR VOLUME 82 fl (80-97); PLATELET COUNT 232 10^3/uL (150-450); RED BLOOD COUNT 3.88 10^6/uL (3.72-5.28); RED CELL DISTRIBUTION WIDTH 14.6 % (11.5-14.0); SEGMENTED NEUTROPHILS % (AUTO) 71.3 % (42-78); TOTAL CELLS COUNTED % (AUTO) 100 %; WHITE BLOOD COUNT 8.7 10^3/uL (4.0-10.5)
[2019-05-20] MEDS ORDERED: RINGERS SOLUTION,LACTATED 1,000 ML IV ONE (01:10)
[2019-05-20] MEDS ORDERED: PENICILLIN G POTASSIUM 5,000,000 UNIT in DEXTROSE 5%-WATER 100 ML IV ONE (01:30)
[2019-05-20] MEDS ORDERED: ACETAMINOPHEN 325 MG TABLET ONE (03:00)
[2019-05-20] MEDS ORDERED: ACETAMINOPHEN 325 MG TABLET PO ONE (03:10)
--- NOTE | 2019-05-20 04:16 | Admission Physical ---
Datetime Report Generated by CPN: 05/20/2019 04:15 CURRENT ADMISSION Chief Complaint: Uterine Contractions Indication for Induction: Not Applicable Admit Impression : Term, Intrauterine ; No Active Labor; Ruptured Membranes Admit Plan: Admit to Unit; Initiate Labor Augmentation Protocol ALLERGIES Medication Allergies: Yes Medication Allergies: Sulfa (Sulfonamide Antibiotics)/MO/Urticaria (05/19/2019) Latex: No Latex Allergies OBSTETRICAL HISTORY EDC: 05/21/2019 00:00 : 2 Para: 1 Term: 1 : 0 SAB: 0 Livin Gestational Diabetes: No Rh Sensitization: No Incompetent Cervix: No ANIRUDH: No Infertility: No ART Treatment: No Uterine Anomaly: No IUGR: No Hx Previous C/S: No Macrosomia: No Hx Loss/Stillborn: No PIH: No Hx : No Placenta Previa/Abruption: No Depression/PP Depression: No PTL/PROM: No Post Hemorrhage: No Current Procedures: Ultrasound; NST SEE RECORDS Alcohol: No Marijuana : No Cocaine: No Other Illicit Drugs: No Cigarettes: Never Smoker. [id number] MEDICAL HISTORY Diabetes: No Blood Transfusion: No Pulmonary Disease (Asthma, TB): No Breast Disease: No Hypertension: No Supervisor [employer] Surgery: No Heart Disease: No Hosp/Surgery: No Autoimmune Disorder: No Anesthetic Complications: No Kidney Disease: No Abnormal Pap Smear: No Neuro/Epilepsy: No Psychiatric Disorders: No Other Medical Diseases: No Hepatitis/Liver Disease: No Significant Family History: No Varicosities/Phlebitis: No Thyroid Dysfunction: No INFECTIOUS HISTORY Gonorrhea: No Genital Herpes: No Chlamydia: No Syphilis: No HIV/AIDS Exposure: No HPV: No PHYSICAL EXAM General: Normal HEENT: Normal Neurologic: Normal Thyroid: Normal Heart: Normal Lungs: Normal Breast: Normal Back: Normal Abdomen: Normal Genitourinary Exam: Normal Extremities: Normal DTRs: Normal Pelvic Type: Adequate Vital Signs: Reviewed; Within Normal Limits VAGINAL EXAM Dilatation: 1 Effacement: 50 Station: -2 Contraction Comments: irregular MEMBRANES Membranes: Ruptured Amniotic Fluid Color: Clear FETUS A EGA: 39.6 Monitoring: External US FHR- Baseline: 150s Variability: Moderate 6-25bpm Accelerations: 15X15 Decelerations: None FHR Category: Category I Admit Comment: presents to L_D c/o leakage of fluid, which started at 2330. Clear fluid noted. GBS Neg. She reports good movements. No co-morbidities. She is kole irregularly. Will start some Pitocin. PLANS FOR LABOR AND DELIVERY Labor and Delivery: None Pain Management: Epidural Feeding Preference: Both Benefit of Breast Feed Discussed: Yes Circumcision: Yes INFORMED CONSENT Signature: with User ID: [email or web address]
[2019-05-20] MEDS ORDERED: EPHEDRINE SULFATE INJ 50 MG/1 ML AMPULE ONE (05:48)
[2019-05-20] MEDS ORDERED: FENTANYL/BUPIVACAINE/NS/PF 300 MCG/150 ML RTUINJ EPI ONE (05:48)
[2019-05-20] MEDS ORDERED: BUPIVACAINE HCL 0.25 % INJ/PF (2.5 MG/1 ML) 30 ML VIAL ONE (05:48)
[2019-05-20] MEDS: PENICILLIN G POTASSIUM 2,500,000 UNIT in DEXTROSE 5%-WATER 50 ML IV SCH (09:53)
[2019-05-20] MEDS ORDERED: BENZOCAINE/MENTHOL AEROSOL SPRAY 56 ML ONE (11:48)
[2019-05-20] MEDS ORDERED: DIBUCAINE 1% OINTMENT 28 GM TP PRN (12:07)
[2019-05-20] MEDS ORDERED: BENZOCAINE/MENTHOL AEROSOL SPRAY 56 ML TOP PRN (12:07)
[2019-05-20] MEDS ORDERED: ZOLPIDEM TARTRATE 5 MG TABLET PO PRN (12:07)
[2019-05-20] MEDS ORDERED: ACETAMINOPHEN WITH CODEINE #3 TABLET PO PRN (12:07)
[2019-05-20] MEDS ORDERED: DIPH/PERTUSS(ACELL)/TETANUS VAC/PF 0.5 ML SYR (>=10YO) IM PRN (12:07)
[2019-05-20] MEDS ORDERED: MEASLES,MUMPS&RUBELLA VACC/PF 0.5 ML VIAL SUBCUT PRN (12:07)
--- NOTE | 2019-05-20 12:29 | Warning Signs in Babies ---
VOD Warning Signs Datetime Report Generated by [facility]: 05/20/2019 12:28 VOD#608 -Warning Signs in Babies: Viewed with Parent(s)/Family (05/20/2019 11:45:Adelaide Michel RN)
[2019-05-20] MEDS: ACETAMINOPHEN WITH CODEINE #3 TABLET PO PRN (20:40)
[2019-05-20] MEDS: IBUPROFEN 800 MG TABLET PO SCH (22:16)
[2019-05-21] MEDS: IBUPROFEN 800 MG TABLET PO SCH ×3 (06:06→22:48)
[2019-05-21] MEDS: FERROUS SULFATE 325 MG TABLET PO SCH (10:17)
[2019-05-21] MEDS: PRENATAL VITAMIN W DHA CAPSULE PO SCH (10:17)
[2019-05-21] MEDS: DOCUSATE SODIUM 100 MG CAPSULE PO SCH (10:17)
[2019-05-21] MEDS: SENNOSIDES/DOCUSATE 8.6-50 MG 1 EACH TABLET PO SCH (10:17)
[2019-05-21] MEDS: ACETAMINOPHEN WITH CODEINE #3 TABLET PO PRN (10:20)
[2019-05-21 10:22] LABS: ABSOLUTE EOSINOPHILS # (AUTO) 0.3 10^3/uL (0.0-0.6); ABSOLUTE LYMPHOCYTES (AUTO) 1.4 10^3/uL (0.5-4.7); ABSOLUTE MONOCYTES (AUTO) 0.7 10^3/uL (0.1-1.4); ABSOLUTE NEUT (AUTO) 7.6 10^3/uL (1.7-8.2); BASOPHILS % (AUTO) 0.4 % (0-2); EOSINOPHILS % (AUTO) 2.8 % (0-6); HEMATOCRIT 31.7 % (36.0-47.0); HEMOGLOBIN 10.5 g/dL (12.0-15.5); LYMPHOCYTES % (AUTO) 14.1 % (13-45); MEAN CORPUSCULAR HEMOGLOBIN 27.4 pg (27.0-33.4); MEAN CORPUSCULAR VOLUME 83 fl (80-97); MONOCYTES % (AUTO) 7.1 % (3-13); PLATELET COUNT 217 10^3/uL (150-450); RED BLOOD COUNT 3.81 10^6/uL (3.72-5.28); RED CELL DISTRIBUTION WIDTH 14.8 % (11.5-14.0); SEGMENTED NEUTROPHILS % (AUTO) 75.6 % (42-78); TOTAL CELLS COUNTED % (AUTO) 100 %; WHITE BLOOD COUNT 10.1 10^3/uL (4.0-10.5)
--- NOTE | 2019-05-21 12:09 | PDOC PROGRESS REPORT ---
Subjective-OB Progress Note for:: 05/21/19 Subjective: Doing well, no c/o, hsb at BS, , no c/o Physical Exam (OB) Vital Signs: Temp Pulse Resp BP Pulse Ox 98.2 F 65 17 108/61 98 05/21/19 07:50 05/21/19 07:50 05/21/19 07:50 05/21/19 07:50 05/21/19 07:50 Intake & Output 05/20/19 05/21/19 05/22/19 06:59 06:59 06:59 Intake Total 1600 400 Balance 1600 400 Weight 97.976 kg - PIH/Pre-Eclampsia Clonus: Negative Headache: Absent Epigastric Pain: No Visual Changes: No - Lochia Lochia Amount: Small 10-25 ml Lochia Color: Rubra/Red - Abdomen Description: Soft, Round Hernia Present: No Fundal Description: Firm, Midline Fundal Height: u/u - u/2 Objective-Diagnostic Laboratory: 05/21/19 10:06 05/21/19 10:06 WBC 10.1 RBC 3.81 Hgb 10.5 L Hct 31.7 L MCV 83 MCH 27.4 MCHC 33.0 RDW 14.8 H Plt Count 217 Seg Neutrophils % 75.6 Assessment and Plan(PN) - Assessment and Plan (1) Excessive weight gain in Qualifiers: Trimester: first trimester Qualified Code(s): O26.01 - Excessive weight gain in , first trimester Is this a current diagnosis for this admission?: Yes (2) Positive GBS test Is this a current diagnosis for this admission?: Yes (3) Delivery normal Is this a current diagnosis for this admission?: Yes - Time Spent with Patient Time with patient: Less than 15 minutes Medications reviewed and adjusted accordingly: Yes - Disposition Anticipated Discharge: Home Within: within 24 hours
[2019-05-22] MEDS: ACETAMINOPHEN WITH CODEINE #3 TABLET PO PRN (01:16)
[2019-05-22] MEDS: FERROUS SULFATE 325 MG TABLET PO SCH ×2 (06:14→09:18)
[2019-05-22] MEDS: DOCUSATE SODIUM 100 MG CAPSULE PO SCH ×2 (06:14→09:18)
[2019-05-22] MEDS: IBUPROFEN 800 MG TABLET PO SCH ×3 (06:51→13:13)
[2019-05-22] MEDS: PENICILLIN G POTASSIUM 2,500,000 UNIT in DEXTROSE 5%-WATER 50 ML IV SCH (08:56)
[2019-05-22] MEDS: PRENATAL VITAMIN W DHA CAPSULE PO SCH (09:18)
[2019-05-22] MEDS: SENNOSIDES/DOCUSATE 8.6-50 MG 1 EACH TABLET PO SCH (09:18)
[2019-05-22 10:21] VITALS: BP 108/60
--- NOTE | 2019-05-22 10:34 | PDOC PROGRESS REPORT ---
Subjective-OB Progress Note for:: 05/22/19 Subjective: pt sleeping on rounds with blanket over head, hsb states she is tired, discussed with patient and she reports hx of pp depression and she feels sad today, has good support at home, , eating well, scant lochia Physical Exam (OB) Vital Signs: Temp Pulse Resp BP Pulse Ox 97.7 F 66 18 108/60 100 05/22/19 10:21 05/22/19 10:21 05/22/19 10:21 05/22/19 10:21 05/22/19 10:21 Intake & Output 05/21/19 05/22/19 05/23/19 06:59 06:59 06:59 Intake Total 1600 1400 2000 Balance 1600 1400 1999 - PIH/Pre-Eclampsia Clonus: Negative Headache: Absent Epigastric Pain: No Visual Changes: No - Lochia Lochia Amount: Scant < 10 ml Lochia Color: Rubra/Red - Abdomen Description: Soft Hernia Present: No Fundal Description: Firm, Midline Fundal Height: u/u - u/2 Objective-Diagnostic Laboratory: 05/21/19 10:06 Assessment and Plan(PN) - Assessment and Plan (1) Excessive weight gain in Qualifiers: Trimester: first trimester Qualified Code(s): O26.01 - Excessive weight gain in , first trimester Is this a current diagnosis for this admission?: Yes (2) Positive GBS test Is this a current diagnosis for this admission?: Yes (3) Delivery normal Is this a current diagnosis for this admission?: Yes - Time Spent with Patient Time with patient: Less than 15 minutes Medications reviewed and adjusted accordingly: Yes - Disposition Anticipated Discharge: Home Within: within 24 hours
--- NOTE | 2019-05-22 10:40 | PDOC DISCHARGE SUMMARY ---
Impression - Admit/DC Date/PCP Admission Date/Primary Care Provider: 05/20/19 00:40 RADHA IVERSON Discharge Date: 05/22/19 - Discharge Diagnosis (1) Excessive weight gain in Is this a current diagnosis for this admission?: Yes (2) Positive GBS test Is this a current diagnosis for this admission?: Yes (3) Delivery normal Is this a current diagnosis for this admission?: Yes (4) Depression Is this a current diagnosis for this admission?: Yes - Additional Information Discharge Diet: As Tolerated, Regular Discharge Activity: Activity As Tolerated, No Lifting Over 10 Pounds, No Lifting/Push/Pulling, Pelvic Rest Referrals: [facility] [Provider Group] (a 1 week) Prescriptions: Sertraline HCl [Zoloft 50 mg Tablet] 50 mg PO DAILY #30 tablet Home Medications: Prenat 115/Iron Fum/Folic/Dss [ 19 Tablet] 1 each PO DAILY 05/20/19 Sertraline HCl [Zoloft 50 mg Tablet] 50 mg PO DAILY #30 tablet 05/22/19 HPI Gestational Age: 39 Reason(s) for Admission: Onset of Labor, PROM, Group B Strep Positive Admission Note: augmentation with Pitocin Procedures: NST, Ultrasound Intrapartum Procedure(s): Spontaneous Vaginal Delivery Complication(s): Laceration-Perineal, Laceration-Periurethral - boy, wt 8-7, apgars 9/9 Laceration-Degree: 2nd Hospital Course Hospital Course: routine Results Laboratory Results: WBC 10.1 10^3/uL (4.0-10.5) 05/21/19 10:06 RBC 3.81 10^6/uL (3.72-5.28) 05/21/19 10:06 Hgb 10.5 g/dL (12.0-15.5) L 05/21/19 10:06 Hct 31.7 % (36.0-47.0) L 05/21/19 10:06 MCV 83 fl (80-97) 05/21/19 10:06 MCH 27.4 pg (27.0-33.4) 05/21/19 10:06 MCHC 33.0 g/dL (32.0-36.0) 05/21/19 10:06 RDW 14.8 % (11.5-14.0) H 05/21/19 10:06 Plt Count 217 10^3/uL (150-450) 05/21/19 10:06 Lymph % (Auto) 14.1 % (13-45) 05/21/19 10:06 [place] % (Auto) 7.1 % (3-13) 05/21/19 10:06 Eos % (Auto) 2.8 % (0-6) 05/21/19 10:06 Baso % (Auto) 0.4 % (0-2) 05/21/19 10:06 Absolute Neuts (auto) 7.6 10^3/uL (1.7-8.2) 05/21/19 10:06 Absolute Lymphs (auto) 1.4 10^3/uL (0.5-4.7) 05/21/19 10:06 Absolute Monos (auto) 0.7 10^3/uL (0.1-1.4) 05/21/19 10:06 Absolute Eos (auto) 0.3 10^3/uL (0.0-0.6) 05/21/19 10:06 Absolute Basos (auto) 0.0 10^3/uL (0.0-0.2) 05/21/19 10:06 Seg Neutrophils % 75.6 % (42-78) 05/21/19 10:06 Urine Color STRAW 05/19/19 23:59 Urine Appearance CLEAR 05/19/19 23:59 Urine pH 6.0 (5.0-9.0) 05/19/19 23:59 Ur Specific [place] 1.006 05/19/19 23:59 Urine Protein NEGATIVE mg/dL (NEGATIVE) 05/19/19 23:59 Urine Glucose (UA) NEGATIVE mg/dL (NEGATIVE) 05/19/19 23:59 Urine Ketones NEGATIVE mg/dL (NEGATIVE) 05/19/19 23:59 Urine Blood MODERATE (NEGATIVE) H 05/19/19 23:59 Urine Nitrite NEGATIVE (NEGATIVE) 05/19/19 23:59 Urine Bilirubin NEGATIVE (NEGATIVE) 05/19/19 23:59 Urine Urobilinogen NEGATIVE mg/dL (<2.0) 05/19/19 23:59 Ur Leukocyte Esterase NEGATIVE (NEGATIVE) 05/19/19 23:59 Urine Ascorbic Acid NEGATIVE (NEGATIVE) 05/19/19 23:59 Membranes Rupture POSITIVE (NEGATIVE) H 05/20/19 00:05 Urine Opiates Screen NEGATIVE 05/19/19 23:59 Urine Methadone Screen NEGATIVE 05/19/19 23:59 Ur Barbiturates Screen NEGATIVE 05/19/19 23:59 Ur Phencyclidine Scrn NEGATIVE 05/19/19 23:59 Ur Amphetamines Screen NEGATIVE 05/19/19 23:59 U Benzodiazepines Scrn NEGATIVE 05/19/19 23:59 Urine Cocaine Screen NEGATIVE 05/19/19 23:59 U Marijuana (THC) Screen NEGATIVE 05/19/19 23:59 RPR NONREACTIVE (NONREACTIVE) 05/20/19 00:39 Blood Type A POSITIVE 05/20/19 00:39 Antibody Screen NEGATIVE 05/20/19 00:39 Plan Health Concerns: depression Plan of Treatment: start Zoloft, hsb to look for signs depression is worse Goals: no complications Time Spent: Less than 30 Minutes
[2019-05-22] MEDS ORDERED: SERTRALINE HCL 50 MG TABLET PO SCH (10:45)
--- NOTE | 2019-05-25 13:56 | Delivery Summary ---
Del Sum A-C Datetime Report Generated by CPN: 05/25/2019 13:56 DELIVERY PERSONNEL DELIVERY PERSONNEL: [id number] Delivery Doctor:: Angela Bee CNM Labor and Delivery Nurse:: Trinity Cason RNcathode ray tube salvage processor Nurse:: Adelaide Michel RN Business Insight And Analytics Manager/TECHNICAL SERVICE REP: Fariedh Esqueda, ST MATERNAL INFORMATION Delivery Anesthesia: Epidural Medications After Delivery: Pitocin Drip 20 Units/1000ml NSS Estimated Blood Loss (ml): 440 Maternal Complications: None Provider Comments: Called to pt room, pt was C/C/+2 with urge to push. Epidural working well, pt in good control, pushed several times baby was delivered OA to KENENDY, shoulders delivered easily, vigorous to mothers abd. Cord clamped after 2 min, placenta partially and bleeding, attempted to assist with spont delivery but manually removed via bee mech d/t increased bleeding. Pt tolerated well, lacerations repaired as above. Mother and baby stable and bleeding stabilized. LABOR SUMMARY EDC: 05/21/2019 00:00 No. Babies in Womb: 1 Attempted: No Labor Anesthesia: Epidural LABOR INFORMATION Reason for Induction: Not Applicable Complete Dilatation: 05/20/2019 11:05 Oxytocin: Augmentation Group B Beta Strep: positive Antibiotics # of Doses: 3 Antibiotics Time of Last Dose: 952 Name of Antibiotic Given: Penicillin Steroids Given: None Reason Steroids Not Administered: Not Applicable MEMBRANES Membranes Rupture Method: Spontaneous Rupture of Membranes: 05/19/2019 23:30 Length of Rupture (hr): 11.85 Amniotic Fluid Color: Clear Amniotic Fluid Amount: Moderate Amniotic Fluid Odor: Normal STAGES OF LABOR Stage 2 hr: 0 Stage 2 min: 16 Stage 3 hr: 0 Stage 3 min: 7 VAGINAL DELIVERY Episiotomy: None Laceration #1: Perineal Laceration Extension #1: Second Degree Laceration #2: Periurethral Laceration Extension #2: First Degree Laceration Repair: Yes Laceration Repair Note: 3.0 chromic used for perineal repair in usual fashion periurethral lacs not repaired, superficial and hemostatic Sponge Count Correct: Yes BABY A INFORMATION Infant Delivery Date/Time: 05/20/2019 11:21 Method of Delivery: Vaginal Born in Route : No : N/A Forceps: N/A Vacuum Extraction: N/A Shoulder Dystocia : No PRESENTATION/POSITION BABY A Presentation: Cephalic Cephalic Presentation: Vertex Vertex Position: Left Occipital Anterior Breech Presentation: N/A PLACENTA INFORMATION BABY A Placenta Delivery Time : 05/20/2019 11:28 Placenta Method of Delivery: Spontaneous Placenta Status: Delivered SCORES BABY A Heart Rate 1 min: >100 bpm Resp Effort 1 min: Good Cry Reflex Irritability 1 min: Cough or Sneeze or Pulls Away Muscle Tone 1 min: Active Motion Color 1 min: Body [place], Extremities Blue SCORE 1 MIN: 9 Heart Rate 5 min: >100 bpm Resp Effort 5 min: Good Cry Reflex Irritability 5 min: Cough or Sneeze or Pulls Away Muscle Tone 5 min: Active Motion Color 5 min: Body [place], Extremities Blue SCORE 5 MIN: 9 INFORMATION BABY A Gestational Age at Delivery: 39.0 Gestational Status: Full Term- 39- 40.6 Weeks Outcome : Liveborn Infant Condition : Stable Sex: Male Sex: Male IDENTIFICATION BABY A Infant Verification Date/Time: 05/20/2019 11:31 ID Band Number: [id number] Mother's Name Verified: Yes RN Verifying : MMobley MJorge WEIGHT/LENGTH BABY A Birthweight (gm): 3836 Weight (lb): 8 Infant Weight (oz): 7 Length (in): 20.25 Infant Length (cm): 51.44 CORD INFORMATION BABY A Nuchal Cord : N/A Suction: None ASSESSMENT BABY A Complications: None Physical Findings at Delivery: Caput Succedaneum; Molding of the Head Infant Respirations: Appears Normal Care By: Miriam SULLIVAN Transferred To: Remains with Mother BABY B INFORMATION : N/A SIGNATURES Assignment: Osmin Garcia MD Signature: with User ID: [email or web address] : with User ID: [email or web address] : I was personally available for consultation and serving as supervising physician for the P.
== END 2019-05-22 14:15 | disposition home or self-care (01) | DRG 807 ==
LOC: LC 23:52 → LR 05-20 00:40 → 2S 05-20 13:47
PROVIDERS: ADMIT Obstetrics & Gynecology Gynecology; ATTEND Obstetrics & Gynecology Gynecology
PROC: 10E0XZZ Delivery of Products of Conception, External Approach (ICD-10-PCS; principal; 2019-05-20)
PROC: 0KQM0ZZ Repair Perineum Muscle, Open Approach (ICD-10-PCS; 2019-05-20)
PROC: 0UQMXZZ Repair Vulva, External Approach (ICD-10-PCS; 2019-05-20)
DX: O99.824 Streptococcus B carrier state complicating childbirth (principal); Z37.0 Single live birth; O26.03 Excessive weight gain in pregnancy, third trimester; O99.344 Other mental disorders complicating childbirth; F32.9 Major depressive disorder, single episode, unspecified; O70.1 Second degree perineal laceration during delivery; O71.82 Other specified trauma to perineum and vulva; O45.8X3 Other premature separation of placenta, third trimester; Z3A.39 39 weeks gestation of pregnancy
CPT/HCPCS: 36415; 80307; 81005; 84112; 85025; 86592; 86850; 86900; 86901; J2540; J2590; J3010; J3490; J7060